=== PATIENT | male | born 1950 | race Caucasian/White ===

== ENCOUNTER 2025-03-31 08:01 | Observation (INO) | payer MEDICARE, SELFPAY ==
[2025-03-31] VITALS (7 sets, daily range): BP systolic 110–160; BP diastolic 58–98; PULSE 60–89; RESP 16–18; TEMP 36.4–36.9; O2SAT 95–100
--- NOTE | 2025-03-31 08:16 | MRI_ITS ---
PROCEDURE: SPINE LUMBAR (ROUTINE) 03/31/2025 REASON FOR EXAM: BACK PAIN, RIGHT SCIATICA TECHNIQUE: Procedure Code: MRISPL Modality: MR Procedure: SPINE LUMBAR (ROUTINE) COMPARISON: None FINDINGS: The vertebral body alignment is maintained. The vertebral body height is maintained. There is Modic edema type endplate change at the posterior inferior L4 endplate. Intervertebral disc signal i shows desiccation. Normal appearing facets are noted. The L1-L2 level: There is no significant disk protrusion. There is no lateral recess stenosis or foraminal stenosis. There is no critical central canal stenosis. The L2-L3 level: There is mild central, moderate right paracentral disc protrusion. There is mild right lateral recess effacement. There is mild right foraminal narrowing secondary to disc protrusion. There is no critical central canal stenosis. The L3-L4 level: There is moderate central and right and left paracentral disc protrusion, with an extruded component extending in the right lateral recess, posterior to L4, measuring 1.5 x 1.1 by 1.6 cm. There is moderate right and mild left lateral recess effacement. There is mild bilateral foraminal narrowing secondary to disc protrusion and facet hypertrophy. There is mild central canal stenosis at the L3-4 level, moderate central canal stenosis posterior to L4. The L4-L5 level: There is broad-based central and right and left paracentral disc protrusion with an extruded component which extends beyond the L4 endplate, there is moderate bilateral lateral recess stenosis. There is moderate right and mild left foraminal narrowing secondary to disc protrusion and facet hypertrophy. There is moderate central canal stenosis. The L5-S1 level: There is mild central and right and left paracentral disc and osteophyte protrusion. There is mild bilateral lateral recess effacement. There is mild right foraminal narrowing secondary to disc protrusion. There is no central canal stenosis. The visualized conus shows normal signal characteristics. Adjacent soft tissues are unremarkable. MRI/Spine Lumbar (Routine) IMPRESSION: There is Modic edema type endplate change at the posterior inferior L4 endplate , which can indicate recent injury or active inflammation. There is disc extrusion at L3-4 with a large fragment in the right lateral rece ss posterior to L4. There is disc extrusion at L4-5 which slightly protrudes beyond the L4 endplate . There is mild central canal stenosis at L3-4, moderate central canal stenosis p osterior to L4, and moderate central canal stenosis at L4-5, with lateral recess and foraminal narrowing. Reading Location: [facility]
--- NOTE | 2025-03-31 08:18 | ED.VIS.BACK ---
HPI History of Present Illness Chief Complaint: Back Detail of Chief Complaint: Back and right leg pain Informant: patient Narrative Narrative: Patient presents to the emergency department with concern for sciatica. Patient states that he has had pain in his right low back and buttock radiating down his right leg for about 9 to 10 days. Denies injury. No prior episodes like this. He was seen at urgent care last week and started on prednisone. Seen in the emergency department at [facility] yesterday and had x-rays of his right knee and a CAT scan he thinks of his back. He was medicated there and prescribed hydrocodone as well as more prednisone. They did not feel the hydrocodone prescription because they were there last night. He did have a fall yesterday and at times feels like his right leg wants to give out and he falls. Complains of some weakness in that right leg. Denies loss of bowel or bladder function. Denies saddle anesthesia. Denies fever or chills. [facility] Medical History Kidney disease Hypertension Hearing problem Migraines Chronic bronchitis Bone fracture Back problem Arthritis Allergies BMI 30.0-30.9,adult Hypercholesterolemia Diabetes type 2, uncontrolled Home Medications ?Medication ?Instructions ?Recorded ?Last Taken ?Type blood sugar diagnostic (Relion #20 ea 09/04/17 Unknown History Confirm-Micro strips) acetaminophen 650 mg 650 mg PO Q12H 06/01/24 Unknown History tablet,extended release (Tylenol Arthritis Pain) aspirin 81 mg tablet,delayed 81 mg PO QDAY 06/01/24 Unknown History release (Adult Low Dose Aspirin) blood sugar diagnostic (OneTouch #100 ea 06/01/24 Unknown Rx Verio test strips) blood-glucose meter (OneTouch #1 ea 06/01/24 Unknown Rx Verio Reflect Meter) cetirizine 10 mg capsule (Zyrtec) 10 mg PO QDAY PRN 06/01/24 Unknown History cholecalciferol (vitamin D3) 50 50 mcg PO QDAY 06/01/24 Unknown History mcg (2,000 unit) capsule multivitamin 1 tab PO QAM 06/01/24 Unknown History zinc sulfate 50 mg zinc (220 mg) 50 mg PO QDAY 06/01/24 Unknown History capsule lovastatin 10 mg tablet 10 mg PO .QOD 10/15/24 Unknown History metformin 500 mg tablet,extended 1,000 mg (2 x 500 mg) PO BID #360 11/17/24 Unknown Rx release 24 hr tabs enalapril maleate 5 mg tablet 5 mg PO BID #90 tabs 01/21/25 Unknown Rx glipizide 10 mg tablet 10 mg PO BID #180 tabs 02/17/25 Unknown Rx tadalafil 5 mg tablet (Cialis) 5 mg PO QDAY #90 tabs 02/22/25 Unknown Rx semaglutide 1 mg/dose (4 mg/3 mL) 1 mg (0.75 mL) subcut QWEEK #3 mL 03/22/25 Unknown Rx subcutaneous pen injector (Ozempic) methylprednisolone 4 mg tablets in See Rx Instructions PO PER PKG DIR 03/24/25 Unknown Rx a dose pack #21 tabs hydrochlorothiazide 25 mg tablet 25 mg PO QAM #90 tabs 03/30/25 Unknown Rx Allergy/AdvReac Type Severity Reaction Status Date / Time No Known Allergies Allergy Verified 03/31/25 08:03 Family History Brother Cancer lymphoma Sister Heart disease Father Heart disease Mother Heart disease Brother Cancer prostate Surgical History H/O colonoscopy Social History household members: spouse current occupational status: employed and retired 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, concrete, etc Smoking Status: Former smoker quit date: 06/03/89 pack-years: 3 second hand exposure: No alcohol intake: never substance use type: does not use do you feel safe at home: Yes ROS ROS ED Review of Systems ROS Unobtainable: other Constitutional Constitutional ED: Reports lethargy; Denies chills, fever(s), sweats or weight loss Eyes Eyes: Denies blurry vision, change in vision or diplopia ENT ENT ED: Denies rhinorrhea or sore throat Cardiovascular Cardiovascular: Denies chest pain, orthopnea or racing heartbeat Respiratory/Chest Respiratory/Chest: Denies cough, dyspnea, dyspnea on exertion, orthopnea or sputum Gastrointestinal Gastrointestinal: Denies abdominal pain, diarrhea, nausea or vomiting Genitourinary Genitourinary ED: Denies dysuria, hematuria or urinary frequency Musculoskeletal Musculoskeletal: Reports neck pain and other Details: Right leg pain ; Denies arthralgias, back pain or myalgias Integumentary Denies abscess, Abrasions or rash Neurologic Neurologic: Denies headache(s) or weakness Psychiatric Psychiatric: Denies anxiety, depression or suicidal thoughts Endocrine Endocrinology: Denies polydipsia, polyphagia or polyuria Hematologic/Lymphatic Hematologic/Lymphatic: Denies easy bleeding, easy bruising or lymphadenopathy Allergic/Immunologic Allergic/Immunologic ED: Denies mouth swelling, tongue swelling or urticaria EXAM Physical Exam Const Vital Signs: 03/31/25 08:02 03/31/25 10:13 Temperature 97.8 F Temperature Source Oral Pulse Rate 82 86 Respiratory Rate 16 Blood Pressure 127/70 H 110/67 Blood Pressure Mean 89 81 Pulse Ox 100 Oxygen Delivery Method Room Air Positive well nourished and well developed General Appearance ED: well developed and NAD HEENT Reports TM's clear and moist mucous membranes normocephalic and atraumatic; Negative for trauma or tenderness Tympanic Membrane ED: Yes TM's clear Eyes PERRL and EOMs intact bilaterally General Eye ED: Negative for pale conjunctiva or scleral icterus Neck no lymphadenopathy, supple and no JVD General: Negative for tenderness Chest Wall inspection of chest normal and palpation of chest normal Chest: Negative for tenderness Resp normal respiratory effort and clear to auscultation bilaterally Effort and Inspection: Negative for respiratory distress or pain with movement Auscultation: Negative for rhonchi, wheezes or diminished lung sounds Cardio regular rate, regular rhythm, S1 normal heart sound, S2 normal heart sound and no murmurs Peripheral Pulses: pulses 2+ throughout GI normal to inspection, nondistended, normoactive bowel sounds, soft to palpation, non-tender, non-distended and no masses Back/Spine no CVA tenderness and no thoracic nor lumbar tenderness Back/Spine Narrative: No tenderness over the thoracic or lumbar spine. Mild tenderness in the right buttock over the piriformis. He has negative straight leg raises. Tendon reflex at the right patella and Achilles unable to obtain. Deep tendon reflexes of the left lower extremity at the patella and Achilles plus 1 out of 4. Normal L5 extension bilaterally. Normal sensation to light touch Extremity normal to inspection General Extremety ED: Negative for edema General Extremity: Negative for edema Neuro oriented x3, CN's II-XII intact bilaterally, no sensory deficits noted and gait normal Sensorium / Orientation: awake, alert, oriented to person, oriented to place and oriented to time Motor Exam: strength 5/5 throughout and strength abnormal Psych mental status grossly normal Skin no rashes or lesions noted and no wounds MDM MDM MDM Narrative Medical decision making narrative: Patient presents with severe right leg pain consistent with sciatica. Medicated with Dilaudid. Basic labs obtained CBC with differential showed white count 12.9 with hemoglobin 14.7 and platelet count 264. Chemistries unremarkable. BUN 42 and creat 1.41. MRI of the lumbar spine obtained showed disc extrusion at L3-4 with large fragment in the right lateral recess posterior to L4. Patient had Modic edema type endplate change at posterior inferior L4 endplate which can indicate recent injury or active inflammation. I discussed case with orthopedic surgeon on-call Dr. Holley. We will admit patient for pain management and consultation by back specialist for possible intervention. Lab Data Attestation: I reviewed the patient's lab results. Labs: Laboratory Results - last 24 hr 03/31/25 08:29 WBC 12.9 H RBC 4.85 Hgb 14.7 Hct 42.3 MCV 87.2 MCH 30.3 MCHC 34.8 RDW Std Deviation 38.7 RDW Coeff of Julio 12.1 Plt Count 264 MPV 9.8 Immature Gran % (Auto) 0.500 Neut % (Auto) 79.2 H Lymph % (Auto) 9.7 L Gilmer % (Auto) 7.1 Eos % (Auto) 3.0 Baso % (Auto) 0.5 Absolute Neuts (auto) 10.2 H Absolute Lymphs (auto) 1.25 Nucleated RBC % 0 Sodium 135 Potassium 4.2 Chloride 96 L Carbon Dioxide 26.0 Anion Gap 13 BUN 42 H Creatinine 1.41 H Estim Creat Clear Calc 51.61 Est GFR (MDRD) Non-Af 52 L BUN/Creatinine Ratio 29.6 H Glucose 231 H Calcium 9.7 Radiography Diagnostic Testing: Clinical Impression(s) from Imaging Studies Lumbar Spine MRI 03/31/25 08:16 IMPRESSION: There is Modic edema type endplate change at the posterior inferior L4 endplate, which can indicate recent injury or active inflammation. There is disc extrusion at L3-4 with a large fragment in the right lateral recess posterior to L4. There is disc extrusion at L4-5 which slightly protrudes beyond the L4 endplate. There is mild central canal stenosis at L3-4, moderate central canal stenosis posterior to L4, and moderate central canal stenosis at L4-5, with lateral recess and foraminal narrowing. [facility] Discharge Plan Dx/Rx/DC Orders Clinical Impression: Sciatica, Intractable pain Disposition Disposition: Acute Care Hospital [facility]
[2025-03-31] MEDS: Orphenadrine 60 MG/2 ML Ampul IM (08:29)
[2025-03-31 08:37] LABS: Hematocrit 42.3 % (40-54); Hemoglobin 14.7 g/dL (13.0-16.5); Immature Granulocytes Count 0.060 X10^3/uL (0.0-0.0); Mean Corp Hgb Conc 34.8 g/dL (32-36); Mean Corpuscular Volume 87.2 fL (80-94); Mean Platelet Vol. 9.8 fl (6.2-12.0); NRBC Flagged by Analyzer 0 % (0-5); Platelet Count 264 K/mm3 (150-450); RBC Distribution Width CV 12.1 % (11.6-14.6); RBC Distribution Width SD 38.7 fl (35.1-43.9); Red Blood Count 4.85 M/mm3 (4.6-6.2); White Blood Count 12.9 K/mm3 (4.4-11.0)
[2025-03-31 09:04] LABS: Anion Gap 13 (5-15); BUN 42 mg/dL (4-19); BUN/Creat Ratio 29.6 RATIO (10-20); Calcium,Total 9.7 mg/dL (7.6-11.0); Carbon Dioxide 26.0 mmol/L (21.0-32.0); Chloride 96 mmol/L (98-108); Estimated Creatinine Clearance 51.61 ml/min (50-250); Glucose 231 mg/dL (70-99); Potassium 4.2 mmol/L (3.3-5.1)
[2025-03-31] MEDS: 0.9% Saline Lock 10 ML Syringe IV ×4 (12:23→23:40)
--- NOTE | 2025-03-31 18:21 | HP.PCM.HOS_ITS ---
HPI - General General Date of Admission: 03/31/25 Date of Service: 03/31/25 Chief Complaint: Right leg pain, intermittent weakness in the right leg, right lower back pain HPI Narrative ROZ LIU, is a 74 M who presents to the emergency room at [facility] with complaints of right leg pain radiating down to the knee and just below the knee, he also complains of right lower back pain and intermittent weakness in the right leg. The onset of the symptoms was 03/21/2025, he was seen at an urgent care and placed on a Medrol Dosepak for suspected sciatica. Workup in the emergency room included an MRI of the lumbar spine which revealed disc extrusion at L3-4 with a large fragment in the right lateral recess posterior to L4. There is also disc extrusion at L4-5 which slightly protrudes beyond the L4 endplate. There was also noted to be mild central canal stenosis at L3-4 moderate central canal stenosis posterior to L4 and moderate central canal stenosis at L4-5 with lateral recess and foraminal narrowing. CBC revealed a slightly elevated white blood cell count, creatinine was elevated at 1.41 and BUN was 42. Patient's glucose was 231. Patient was admitted to [place] [id number] for uncontrolled pain due to ruptured lumbar disks, he will be placed on IV Decadron, he will be seen by orthopedic surgery and he will be given gabapentin and narcotics for pain. Patient's blood sugars will be monitored due to administration of corticosteroids. [facility] Medical History Kidney disease Hypertension Hearing problem Migraines Chronic bronchitis Bone fracture Back problem Arthritis Allergies BMI 30.0-30.9,adult Hypercholesterolemia Diabetes type 2, uncontrolled Home Medications ?Medication ?Instructions ?Recorded ?Last Taken ?Type blood sugar diagnostic (Relion #20 ea 09/04/17 Unknown History Confirm-Micro strips) acetaminophen 650 mg 650 mg PO Q12H 06/01/24 Unkn own History tablet,extended release (Tylenol Arthritis Pain) aspirin 81 mg tablet,delayed 81 mg PO QDAY 06/01/24 Un known History release (Adult Low Dose Aspirin) blood sugar diagnostic (OneTouch #100 ea 06/01/24 Unkn own Rx Verio test strips) blood-glucose meter (OneTouch #1 ea 06/01/24 Unknown R x Verio Reflect Meter) cetirizine 10 mg capsule (Zyrtec) 10 mg PO QDAY PRN al lergy symptoms 06/01/24 Unknown History cholecalciferol (vitamin D3) 50 50 mcg PO QDAY 4 Unknown History mcg (2,000 unit) capsule multivitamin 1 tab PO QAM 06/01/24 Unknow n History zinc sulfate 50 mg zinc (220 mg) 50 mg PO QDAY 4 Unknown History capsule lovastatin 10 mg tablet 10 mg PO .QOD 10/15/24 Unkno wn History metformin 500 mg tablet,extended 1,000 mg (2 x 500 mg) PO BID #360 11/17/24 Unknown Rx release 24 hr tabs enalapril maleate 5 mg tablet 5 mg PO BID #90 tabs Unknown Rx glipizide 10 mg tablet 10 mg PO BID #180 tabs 02/17 Unknown Rx tadalafil 5 mg tablet (Cialis) 5 mg PO QDAY #90 tabs 0 02/22/25 Unknown Rx semaglutide 1 mg/dose (4 mg/3 mL) 1 mg (0.75 mL) subcu t QWEEK #3 mL 03/22/25 Unknown Rx subcutaneous pen injector (Ozempic) hydrochlorothiazide 25 mg tablet 25 mg PO QAM #90 tabs 03/30/25 Unknown Rx Allergy/AdvReac Type Severity Reaction Status Date / Time No Known Allergies Allergy Verified 03/31/25 08:03 Family History Brother Cancer lymphoma Sister Heart disease Father Heart disease Mother Heart disease Brother Cancer prostate Surgical History H/O colonoscopy Social History household members: spouse current occupational status: employed and retired 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, concrete, etc Smoking Status: Former smoker quit date: 06/03/89 pack-years: 3 second hand exposure: No alcohol intake: never substance use type: does not use do you feel safe at home: Yes ROS Constitutional Constitutional: Denies anorexia, change in weight, chills, fatigue, fever(s), night sweats or weakness Eyes Eyes: Denies blurry vision, change in vision, discharge from eye(s) or eye pain Cardiovascular Cardiovascular: Denies chest pain, claudication, dyspnea on exertion, edema or palpitations Respiratory/Chest Respiratory/Chest: Denies cough, hemoptysis, shortness of breath at rest or shortness of breath with exertion Gastrointestinal Gastrointestinal: Denies abdominal pain, constipation, diarrhea, hematemesis, hematochezia, melena, nausea or vomiting Genitourinary Genitourinary: Denies dysuria, hematuria, urinary frequency, urinary hesitancy, urinary incontinence or urinary urgency Musculoskeletal Musculoskeletal: Reports back pain and other Details: Right leg pain radiating from the right lower back area ; Denies joint pain, joint stiffness, joint swelling, myalgias or neck pain Neurologic Neurologic: Denies abnormal gait, abnormal speech, confusion, dizziness, focal weakness, headache(s), loss of vision, numbness, other visual disturbances, paresthesias, syncope or tingling Psychiatric Psychiatric: Denies anxiety, cognitive impairment, depression, irritability, mood swings or suicidal ideation Endocrine Endocrinology: Denies change in body appearance, cold intolerance, excessive sweating, heat intolerance, polydipsia or polyuria Hematologic/Lymphatic Hematologic/Lymphatic: Denies none, anemia, easy bleeding, easy bruising or lymphadenopathy Allergic/Immunologic Allergic/Immunologic: Denies rhinitis, urticaria, eczemia or asthma Vital Signs Vital Signs Vital Signs: 03/31/25 08:02 03/31/25 10:13 03/31/25 11:17 Temperature 97.8 F 97.8 F Temperature Source Oral Pulse Rate 82 86 84 Respiratory Rate 16 16 Respiratory Effort Respiratory Depth Respiratory Pattern Blood Pressure 127/70 H 110/67 160/98 H Blood Pressure Mean 89 81 118 Blood Pressure Source Blood Pressure Position Blood Pressure Location Pulse Ox 100 99 Oxygen Delivery Method Room Air 03/31/25 11:19 03/31/25 12:01 03/31/25 16:57 Temperature 97.6 F L Temperature Source Oral Pulse Rate 76 Respiratory Rate 18 Respiratory Effort Normal Non-Labored Respiratory Depth Normal Respiratory Pattern Normal Blood Pressure 112/70 115/73 Blood Pressure Mean 84 87 Blood Pressure Source Monitor Blood Pressure Position Semi-Fowlers Blood Pressure Location Right Arm Pulse Ox 100 Oxygen Delivery Method Room Air Room Air 03/31/25 17:09 Temperature 97.7 F L Temperature Source Oral Pulse Rate 60 Respiratory Rate 18 Respiratory Effort Respiratory Depth Respiratory Pattern Blood Pressure 120/58 L Blood Pressure Mean 78 Blood Pressure Source Monitor Blood Pressure Position Semi-Fowlers Blood Pressure Location Right Arm Pulse Ox 98 Oxygen Delivery Method Room Air Weight Weight: 92.4 kg Body Mass Index (BMI) 30.0 Physical Exam Const alert, oriented x3, no apparent distress, average body habitus and healthy appearing General Appearance: cooperative, well kempt and well developed Orientation / Consciousness: awake, oriented to person, oriented to place and oriented to time HEENT normocephalic, head/scalp atraumatic, hearing grossly normal bilaterally and moist oral mucous membranes Eyes PERRL, EOMs intact bilaterally and conjunctivae normal Neck supple, no JVD, thyroid normal and no carotid bruits General: trachea midline Resp normal respiratory effort, no retractions, no use of accessory muscles and clear to auscultation bilaterally Auscultation: Negative for rales, rhonchi or wheezes Cardio regular rate, regular rhythm, S1 normal heart sound, S2 normal heart sound, no murmurs, no rub and no gallops GI normal to inspection, nondistended, normoactive bowel sounds, soft to palpation, non-tender and non-distended Extremity no clubbing, cyanosis or edema Skin no rashes or lesions noted General Skin Exam: no breakdown Neuro oriented x3, CN's II-XII intact bilaterally, moves all extremities, no focal motor deficits and no sensory deficits noted Sensorium / Orientation: awake and alert Speech: speech normal Psych affect normal Results Lab / Micro Data 03/31/25 08:29 03/31/25 08:29 Labs: Laboratory Results - last 24 hr 03/31/25 08:29: WBC 12.9 H, RBC 4.85, Hgb 14.7, Hct 42.3, MCV 87.2, MCH 30.3, MCHC 34.8, RDW Std Deviation 38.7, RDW Coeff of Julio 12.1, Plt Count 264, MPV 9.8, Immature Gran % (Auto) 0.500, Neut % (Auto) 79.2 H, Lymph % (Auto) 9.7 L, [place] % (Auto) 7.1, Eos % (Auto) 3.0, Baso % (Auto) 0.5, Absolute Neuts (auto) 10.2 H, Absolute Lymphs (auto) 1.25, Nucleated RBC % 0, Sodium 135, Potassium 4.2, Chloride 96 L, Carbon Dioxide 26.0, Anion Gap 13, BUN 42 H, Creatinine 1.41 H, Estim Creat Clear Calc 51.61, Est GFR (MDRD) Non-Af 52 L, BUN/Creatinine Ratio 29.6 H, Glucose 231 H, Calcium 9.7 03/31/25 12:16: POC Glucose 155 H 03/31/25 16:15: POC Glucose 218 H Imaging Radiology Impression Lumbar Spine MRI 03/31/25 08:16 IMPRESSION: There is Modic edema type endplate change at the posterior inferior L4 endplate, which can indicate recent injury or active inflammation. There is disc extrusion at L3-4 with a large fragment in the right lateral recess posterior to L4. There is disc extrusion at L4-5 which slightly protrudes beyond the L4 endplate. There is mild central canal stenosis at L3-4, moderate central canal stenosis posterior to L4, and moderate central canal stenosis at L4-5, with lateral recess and foraminal narrowing. Reading Location: [facility] Assessment & Plan Assessment/Plan (1) Intractable pain: PLAN: Plan 1. Intractable pain secondary to ruptured lumbar disks with sciatica-again patient will be admitted to [facility] 3, IV Decadron will be administered as well as oral gabapentin and IV narcotics/p.o. narcotics for pain. Patient will be seen in consultation by orthopedic surgery, I have also decided to have pain management see the patient and it is likely he will undergo an epidural injection tomorrow. #2 type 2 diabetes-blood sugars will be monitored, sliding scale insulin will be administered as needed #3 essential hypertension-patient will remain on his home medication #4 hyperlipidemia-patient will remain on a statin #5 elevated creatinine-possibly secondary to hydrochlorothiazide usage for blood pressure-BMP will be rechecked tomorrow Total clinical time spent by myself addressing the patient's medical issues, reviewing all of his data, and collaborating with patient's care team: 55 minutes Charges/Coding Visit Charges Inpatient E&M: 48797 Init Hosp L2
[2025-04-01] VITALS (10 sets, daily range): BP systolic 97–117; BP diastolic 62–67; PULSE 79–93; RESP 16–18; TEMP 36.4–36.9; O2SAT 95–97
[2025-04-01 04:39] LABS: Hematocrit 35.5 % (40-54); Hemoglobin 13.0 g/dL (13.0-16.5); Immature Granulocytes Count 0.040 X10^3/uL (0.0-0.0); Mean Corp Hgb Conc 36.6 g/dL (32-36); Mean Corpuscular Volume 84.3 fL (80-94); Mean Platelet Vol. 9.8 fl (6.2-12.0); NRBC Flagged by Analyzer 0 % (0-5); Platelet Count 245 K/mm3 (150-450); RBC Distribution Width CV 11.9 % (11.6-14.6); RBC Distribution Width SD 36.4 fl (35.1-43.9); Red Blood Count 4.21 M/mm3 (4.6-6.2); White Blood Count 9.4 K/mm3 (4.4-11.0)
[2025-04-01 05:24] LABS: Anion Gap 13 (5-15); BUN 43 mg/dL (4-19); BUN/Creat Ratio 33.9 RATIO (10-20); Calcium,Total 8.8 mg/dL (7.6-11.0); Carbon Dioxide 21.5 mmol/L (21.0-32.0); Chloride 96 mmol/L (98-108); Estimated Creatinine Clearance 57.30 ml/min (50-250); Glucose 275 mg/dL (70-99); Potassium 4.7 mmol/L (3.3-5.1)
--- NOTE | 2025-04-01 06:00 | EKG12_ITS ---
Test Reason : AM EKG Blood Pressure : */* mmHG Vent. Rate : 90 BPM Atrial Rate : 90 BPM P-R Int : 184 ms QRS Dur : 108 ms QT Int : 382 ms P-R-T Axes : 56 -41 63 degrees QTcB Int : 467 ms Normal sinus rhythm Left axis deviation ST & T wave abnormality, consider lateral ischemia Prolonged QT Abnormal ECG No previous ECGs available Confirmed by KAEL STRICKLAND, ROHAN ([id number]), non linear editor AMADEO DYER ([id number]) on 04/02/2025 10:55:38 AM Referred By: BELEN Confirmed By: ROHAN SCRUGGS MD
[2025-04-01] MEDS: 0.9% Saline Lock 10 ML Syringe IV ×2 (06:14→11:31)
--- NOTE | 2025-04-01 10:30 | CASEMGMT ---
RN?CM?ASSESSMENT ? RN?CM?to room to meet with patient for initial transition planning/care coordination?assessment.?RN?CM?introduced self and role at [facility].? Pt voices understanding and consents to?assessment?at this time.? Pt resting in bed in no distress at this time.? @ bedside. Pt is A/O at this time and answers all questions appropriately.?? Care providers, pharmacy, and demographics verified/updated at this time. ? Strata: 2 PCP: Dr Reveles Specialists:Dr Dunn & JASMYNE Mo-endocrinology, Dr Hernandez-podiatry Preferred Pharmacy: [facility] retail @ [address]. Pt would like [id number]. Insurance: [employer] Prescription Benefit:?Yes LNOK: Nelly Living Arrangements: Lives w/ in 2-story home w/2 steps to enter. Bedroom and full bathroom on 2nd floor, 1/2 bath on 1st floor. Indep w/ADL's. able to assist, if needed. Transportation:?Pt and both drive. DME: ?States has the following DME:?functioning glucometer w/sufficient amt of supplies. interested in getting a shower chair. Made aware this is not covered by pt's insurance and verbal list of local places this can be purchased from [employer], in addition to [employer]. Pt's brother has a walker he can borrow, if needed. Pt and voice no need for further DME at this time.? HHC/SNF: No hx of either. Pt denies needs and no needs identified. Pt has done OP therapy in the past. He is not interested in doing this again. ? Pt wishes to return home and states has no concerns with going home at time of discharge. CM?to follow for any further discharge planning/needs.? Advised pt and to ask for?CM?if any further questions/concerns/needs arise.? They voice understanding. ? PLAN:??Home w/ PT/OT evals pending. ? Raquel BSN?RN?CM ? ?
--- NOTE | 2025-04-01 13:30 | RAD_ITS ---
PROCEDURE: SPINE 1 VIEW ANY LEVEL 04/01/2025 REASON FOR EXAM: LUMBAR EPIDURAL TECHNIQUE: Procedure Code: RADSPCV Modality: DX Procedure: SPINE 1 VIEW ANY LEVEL Fluoroscopy time: 4.5 seconds Total images: 1 COMPARISON: None FINDINGS: Solitary fluoroscopic spot image was obtained in the anterior projection. It is assumed that the patient is prone. It is assumed that there are 5 lumbar type vertebral bodies. Spot image of the lumbar spine shows a needle overlying the L4/5 disc space just right of midline. There is injection of contrast material spanning portions of L4, L5, and the upper aspect of S1. RAD/Spine 1 View Any Level IMPRESSION: Fluoroscopic localization and guidance. Correlate with procedural note. Reading Location: [facility]
[2025-04-01] MEDS: Lactated Ringers 1,000 ML 15 ML IV (13:44)
--- NOTE | 2025-04-01 14:37 | PRE.ANES_ITS ---
ASA Classification* ASA Classification ASA Classification: 2 Assessment & Plan Anesthesia* Anesthesia Assessment Anesthesia Assessment: Discussed sedation and/or anesthesia options, risks, benefits, and alternatives with patient/parents/legal guardian/POA. Questions invited. The patient/parents/legal guardian/POA seems to understand and agrees to proceed with anesthesia plan. Reviewed the physical assessment, medical history, allergy history and patient home medications list prior to surgery/procedure/anesthetic and documented any changes. Performed airway and anesthesia risk assessments. Anesthesia Type Anesthesia Type: MAC History Source History Obtained from:: Patient and Chart Anesthesia Focused Assessment* Temperature: 97.8 F Pulse Rate: 80 Blood Pressure: 105/65 Respiratory Rate: 17 Pulse Ox: 97 Oxygen Delivery Method: Room Air Airway Assessment Mouth opens: >3 cm Mallampati Score: IV Teeth Condition: Caps/Crowns (Patient has a left upper molar that is capped. It is tight.) and Missing (Patient is missing a right upper molar. Rest of the teeth are tight.) Neck Range of motion (ROM): Limited ROM (Somewhat Decreased.) Labs Anesthesia Preop lab: CBC WBC, (4.4-11.0) 9.4 K/mm3 Today, 04:27 RBC, (4.6-6.2) 4.21 M/mm3 L Today, 04:27 Hgb, (13.0-16.5) 13.0 g/dL Today, 04:27 Hct, (40-54) 35.5 % L Today, 04:27 Plt Count, (150-450) 245 K/mm3 Today, 04:27 CHEMISTRY Potassium, (3.3-5.1) 4.7 mmol/L Today, 04:27 Sodium, (133-145) 130 mmol/L L Today, 04:27 BUN, (4-19) 43 mg/dL H Today, 04:27 Creatinine, (0.70-1.20) 1.27 mg/dL H Today, 04:27 Glucose, (70-99) 275 mg/dL H Today, 04:27 POC Glucose, (74-106) 199 mg/dL H Today, 10:59 COAG Pre-Assessment Diagnosis/Proposed Procedure Planned Operative Procedure(s): Lumbar epidural steroid injection. Anesthesia History Anesthesia History - multi disciplined language analyst: Anesthesia History - multi disciplined language analyst Hx Hospitalization Any Problems With Anesthesia No 04/01/25 04:54 Cholinesterase deficiency No 04/01/25 04:54 You/Your Family Experience No 04/01/25 04:54 fever (hyperthermia) with Relationship Recent Exposure to Contagious No 04/01/25 04:54 Disease Does patient have nerve No 04/01/25 04:54 stimulator Patient instructed to have No 04/01/25 04:54 device shut off --Does patient have Pacemaker No 04/01/25 07:29 or ICD? When Was Last Pacemaker Check QUESTION #4 FULL TEXT: You/Your Family Experience fever (hyperthermia) with Anesthesia Last Oral Intake Last Oral intake: Last Oral Intake NPO since 00:00 04/01/25 07:29 Meds taken in AM with sips of No 04/01/25 07:29 water? Meds patient instructed to take am of surgery PONV PONV - multi disciplined language analyst: PONV - multi disciplined language analyst Female HX of Motion Sickness HX of N/V After Surgery Non-Smoker Duration of Surgery greater than 60 minutes Number of Risk Factors PONV Score Height & Weight Height & Weight: Anesthesia: Height & Weight Height 5 ft 9 in 04/01/25 07:29 Weight: 92.4 kg 04/01/25 07:29 Body Mass Index (BMI) 30.0 04/01/25 07:29 Respiratory Assessment Respiratory Assessment - multi disciplined language analyst: Respiratory Tract Infection Hx - multi disciplined language analyst Hx Respiratory Tract Infection No 04/01/25 04:54 STOP Sleep Apnea STOP Sleep Apnea - multi disciplined language analyst: STOP Sleep Apnea - multi disciplined language analyst Hx Hypertension Yes 03/31/25 11:41 Hx Sleep Apnea No 03/31/25 11:41 CPAP BIPAP Do you snore loudly (louder No 03/31/25 11:41 than talking or can be heard Do you often feel tired/ No 03/31/25 11:41 fatigued/ sleepy during daytime? Has anyone observed you stop No 03/31/25 11:41 breathing during sleep? STOP Results Negative 03/31/25 11:41 QUESTION #5 FULL TEXT : Do you snore loudly (louder than talking or can be heard through closed doors)? Tobacco Use History Tobacco Use History - multi disciplined language analyst: Tobacco Use History - multi disciplined language analyst Tobacco Use Smoking Status Former smoker 03/31/25 11:41 Hx Tobacco Use No 03/31/25 11:41 Years Smoking Packs Smoked per Day Smoking Cessation Date was No - quit smoking greater 03/31/25 11:41 within the last 15 years than 15 years ago Hx Smoking Cessation Date Hx Smoking Cessation Counseling Hematologic Medial History Hematologic Hx - multi disciplined language analyst: Hematologic Medical Hx - rotary soil stabilizer Hx of Blood Transfusion No 03/31/25 11:41 Hx of Transfusion in last 3 No 03/31/25 11:41 Months Date of Last Transfusion (if within last 3 months) Ever experience any problems No 03/31/25 11:41 with transfusion(s)? Specify any problems Hx of Preganancy in last 3 N/A 03/31/25 11:41 Months Nurse Filling Out Transfusion NMARTY 03/31/25 11:41 & Questions: Date: 03/31/25 03/31/25 11:41 Time: 11:56 03/31/25 11:41 Patient unable to answer at this time (ie. confused, unrespo /Reproduction History /Reproductive History - multi disciplined language analyst: /Reproductive Hx- multi disciplined language analyst Hx Now No 04/01/25 04:54 Gestational Age (in weeks): EDC: Hx Hx Para Hx Section SAB No 04/01/25 04:54 Active Medications Active Medications: Current Medications Generic Name Dose Route Start Last Admin Trade Name Freq PRN Reason Stop Dose Admin Acetaminophen 1,000 mg 03/31/25 14:00 04/01/25 13:15 Acetaminophen 500 Mg Tablet PO Not Given Q8 KESHIA Atorvastatin Calcium 5 mg 03/31/25 22:00 03/31/25 21:39 Atorvastatin Calcium 10 Mg Tablet PO 5 mg Q48@2200 KESHIA Administration Dexamethasone Sodium Phosphate 4 mg 03/31/25 12:00 04/01/25 11:30 Dexamethasone 4 Mg/Ml Vial IV 4 mg Q6 KESHIA Administration Gabapentin 400 mg 03/31/25 12:00 04/01/25 11:05 Gabapentin 400 Mg Capsule PO Not Given TIDCM KESHIA Glucagon 1 mg 03/31/25 11:39 Glucagon 1 Mg/Ml Syringe IM X1 PRN HYPOGLYCEMIA Protocol Hydrochlorothiazide 25 mg 04/01/25 10:00 04/01/25 07:28 Hydrochlorothiazide 25 Mg Tablet PO Not Given QAM KESHIA Protocol Hydromorphone HCl 1 mg 03/31/25 11:39 Hydromorphone 1 Mg/Ml Syringe IV Q4H PRN PRN Pain Score 1-10 Dextrose 250 mls @ 0 mls/hr 03/31/25 11:39 Dextrose 10%-Water IV .Q0M PRN HYPOGLYCEMIA Protocol As Directed Sodium Chloride 250 mls @ 15 mls/hr 03/31/25 12:01 IV .[id number] PRN Saline Flush Sodium Chloride 250 mls @ 15 mls/hr 03/31/25 12:01 IV .[id number] PRN Additional IVPB Infusion Lactated Ringer's 1,000 mls @ 15 mls/hr 04/01/25 13:45 04/01/25 13:44 IV 15 mls/hr .Q48H KESHIA Administration Insulin Human Lispro 0 unit 03/31/25 11:39 04/01/25 11:05 Insulin Lispro 100 Unit/Ml Insuln.Pen SC Not Given TIDAC [facility] Protocol Lisinopril 5 mg 03/31/25 22:00 04/01/25 07:28 Lisinopril 5 Mg Tablet PO Not Given BID [facility] Protocol Ondansetron HCl 4 mg 03/31/25 11:39 Ondansetron 4 Mg/2 Ml Vial IV Q8H PRN PRN NAUSEA/VOMITING Oxycodone HCl 10 mg 03/31/25 11:39 03/31/25 21:38 Oxycodone 5 Mg Tablet PO 10 mg Q4H PRN PRN Administration Pain Score 1-10 Sodium Chloride 10 - 40 ml 03/31/25 12:01 04/01/25 11:31 0.9% Saline Lock 10 Ml Syringe IV 10 ml UD PRN Administration SALINE FLUSH Zolpidem Tartrate 5 mg 03/31/25 11:39 Zolpidem Tartrate 5 Mg Tablet PO QHS PRN PRN INSOMNIA PFSH Medical History Kidney disease Hypertension Hearing problem Migraines Chronic bronchitis Bone fracture Back problem Arthritis Allergies BMI 30.0-30.9,adult Hypercholesterolemia Diabetes type 2, uncontrolled Home Medications ?Medication ?Instructions ?Recorded ?Last Taken ?Type blood sugar diagnostic (Relion #20 ea 09/04/17 Unknown History Confirm-Micro strips) acetaminophen 650 mg 650 mg PO Q12H 06/01/24 Unkn own History tablet,extended release (Tylenol Arthritis Pain) aspirin 81 mg tablet,delayed 81 mg PO QDAY 06/01/24 Un known History release (Adult Low Dose Aspirin) blood sugar diagnostic (OneTouch #100 ea 06/01/24 Unkn own Rx Verio test strips) blood-glucose meter (OneTouch #1 ea 06/01/24 Unknown R x Verio Reflect Meter) cetirizine 10 mg capsule (Zyrtec) 10 mg PO QDAY PRN al lergy symptoms 06/01/24 Unknown History cholecalciferol (vitamin D3) 50 50 mcg PO QDAY 4 Unknown History mcg (2,000 unit) capsule multivitamin 1 tab PO QAM 06/01/24 Unknow n History zinc sulfate 50 mg zinc (220 mg) 50 mg PO QDAY 4 Unknown History capsule lovastatin 10 mg tablet 10 mg PO .QOD 10/15/24 Unkno wn History metformin 500 mg tablet,extended 1,000 mg (2 x 500 mg) PO BID #360 11/17/24 Unknown Rx release 24 hr tabs enalapril maleate 5 mg tablet 5 mg PO BID #90 tabs Unknown Rx glipizide 10 mg tablet 10 mg PO BID #180 tabs 02/17 Unknown Rx tadalafil 5 mg tablet (Cialis) 5 mg PO QDAY #90 tabs 0 02/22/25 Unknown Rx hydrochlorothiazide 25 mg tablet 25 mg PO QAM #90 tabs 03/30/25 Unknown Rx semaglutide 1 mg/dose (4 mg/3 mL) 1 mg (0.75 mL) subcu t QWEEK #9 mL 04/01/25 Unknown Rx subcutaneous pen injector (Ozempic) Allergy/AdvReac Type Severity Reaction Status Date / Time No Known Allergies Allergy Verified 03/31/25 08:03 Family History Brother Cancer lymphoma Sister Heart disease Father Heart disease Mother Heart disease Brother Cancer prostate Surgical History H/O colonoscopy Social History household members: spouse current occupational status: employed and retired 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
[2025-04-01] MEDS: Lidocaine 1% (5 ml sdv) 5 ML Vial 4 ML IV (15:02)
[2025-04-01] MEDS: Lidocaine 0.5% (50 ml) 50 ML Vial (15:08)
--- NOTE | 2025-04-01 15:27 | PCM.POST.ANE ---
Anesthesia: Postop Eval I Current Vital Signs Temperature: 97.5 F Pulse Rate: 80 Blood Pressure: 97/64 Respiratory Rate: 16 Pulse Ox: 96 Oxygen Delivery Method: Room Air Assessment Airway patent: Yes Spontaneous unlabored respirations: Yes Mental status: Awake and Calm nausea: No Vomiting: No Anesthesia Complication: No Fluid Hydration Crystalloid volume administer (ml): 200 Total IV fluid infused: 200 Progress Note Anesthesia document: Postop Eval 1 completed: Yes
--- NOTE | 2025-04-01 16:10 | POSTOPAN2_ITS ---
Anesthesia Postop Eval I Sum Postop Eval Completion status Anesthesia document: Postop Eval 1 completed: Yes Anesthesia Postop Eval I Summary Anesthesia Postop Eval I Summary: Anesthesia Postop Eval I: Assessment Summary Airway patent Yes 04/01/25 15:27 MUSIC EDUCATION DIRECTOR.SKOBY Spontaneous unlabored Yes 04/01/25 15:27 MUSIC EDUCATION DIRECTOR.SKOBY respirations Mental status Awake,Calm 04/01/25 15:27 MUSIC EDUCATION DIRECTOR.SKOBY nausea No 04/01/25 15:27 MUSIC EDUCATION DIRECTOR.SKOBY Vomiting No 04/01/25 15:27 MUSIC EDUCATION DIRECTOR.SKOBY Anesthesia Postop Eval I: Fluid Summary Crystalloid volume administer 200 04/01/25 15:27 MUSIC EDUCATION DIRECTOR.SKOBY (ml) Colloids volume administered ( ml) Blood Product volume administered (ml) Total IV fluid infused 200 04/01/25 15:27 MUSIC EDUCATION DIRECTOR.SKOBY Anesthesia Postop Eval I: Summary Notes Anesthesia Complication No 04/01/25 15:27 MUSIC EDUCATION DIRECTOR.SKOBPeri Anesthesia Complication Comment: Post-operative progress note Anesthesia: Postop Eval II Evaluation Mental status: Awake and Calm Pain Level: 0 nausea: No Vomiting: No Complications Anesthesia Complication: No
--- NOTE | 2025-04-01 16:10 | PCM.POSTANE2 ---
Anesthesia Postop Eval I Sum Postop Eval Completion status Anesthesia document: Postop Eval 1 completed: Yes Anesthesia Postop Eval I Summary Anesthesia Postop Eval I Summary: Anesthesia Postop Eval I: Assessment Summary Airway patent Yes 04/01/25 15:27 FACING SLITTER.SKOBY Spontaneous unlabored Yes 04/01/25 15:27 FACING SLITTER.SKOBY respirations Mental status Awake,Calm 04/01/25 15:27 FACING SLITTER.SKOBY nausea No 04/01/25 15:27 FACING SLITTER.SKOBY Vomiting No 04/01/25 15:27 FACING SLITTER.SKOBY Anesthesia Postop Eval I: Fluid Summary Crystalloid volume administer 200 04/01/25 15:27 FACING SLITTER.SKOBY (ml) Colloids volume administered ( ml) Blood Product volume administered (ml) Total IV fluid infused 200 04/01/25 15:27 FACING SLITTER.SKOBY Anesthesia Postop Eval I: Summary Notes Anesthesia Complication No 04/01/25 15:27 FACING SLITTER.SKOBPeri Anesthesia Complication Comment: Post-operative progress note Anesthesia: Postop Eval II Evaluation Mental status: Awake and Calm Pain Level: 0 nausea: No Vomiting: No Complications Anesthesia Complication: No
--- NOTE | 2025-04-01 16:49 | DCINST_ITS ---
Discharge Instructions DC O2, CPAP, BIPAP needs Home O2 Discharge instructions: No Dressing / Incision Discharge Activity: Return to Normal Activity and - (No lifting above 10 pounds) Weight Bearing Status: Full weight bearing Follow Up Care Test Results: Test results from this visit will be discussed in further detail at your follow- up appointment, if applicable. Discharge Plan Admission Admit Date/Time: 03/31/25 10:57 Primary Reason for Your Visit: Ruptured lumbar disc, uncontrolled pain from sc iatica Attending Provider: Handy Ho Primary Care Provider: Nimisha Reveles Consulting Providers: Ellen Hinds Discharge Orders/Prescriptions Prescriptions: New gabapentin 400 mg Capsule 400 mg PO TIDCM Qty: 90 0RF oxycodone 5 mg Tablet 5 - 10 mg PO Q4H PRN PRN (Reason: Pain Score 1-10) 7 Days Qty: 42 0RF prednisone 20 mg tablet 20 mg PO DAILY Qty: 10 0RF Continued (DME) blood sugar diagnostic [Relion Confirm-Micro] strip See Dose Instructions .ROUTE .MEDSUPPLY Qty: 20 Rx Instructions: As directed lovastatin 10 mg tablet 10 mg PO .QOD zinc sulfate 50 mg zinc (220 mg) capsule 50 mg PO QDAY aspirin [Adult Low Dose Aspirin] 81 mg tablet,delayed release (DR/EC) 81 mg PO QDAY acetaminophen [Tylenol Arthritis Pain] 650 mg tablet extended release 650 mg PO Q12H cholecalciferol (vitamin D3) 50 mcg (2,000 unit) capsule 50 mcg PO QDAY multivitamin Tablet 1 tab PO QAM Zyrtec 10 mg capsule 10 mg PO QDAY PRN (Reason: allergy symptoms) (DME) OneTouch Verio test strips Strip See Rx Instructions .Route Qty: 100 5RF Rx Instructions: TID enalapril maleate 5 mg tablet 5 mg PO BID Qty: 90 1RF (DME) blood-glucose meter [OneTouch Verio Ref[place] Meter[place] [facility] [place] .Route Qty: 1 0RF Rx Instructions: to be used 4x/day with test strip metformin 500 mg tablet extended release 24 hr 1,000 mg PO BID Qty: 360 1RF glipizide 10 mg tablet 10 mg PO BID Qty: 180 1RF tadalafil [Cialis] 5 mg tablet 5 mg PO QDAY Qty: 90 0RF hydrochlorothiazide 25 mg tablet 25 mg PO QAM Qty: 90 0RF Ozempic 1 mg/dose (4 mg/3 mL) pen injector 1 mg subcut QWEEK Qty: 9 1RF Referrals / Follow Up: Ellen Hinds MD [Med Staff - Active Staff, Pain Management] - See Referral Note Referral Note: In 3 months Nimisha Reveles MD [Primary Care Provider, Internal Medicine] - Within 1 Month Junior Sullivan MD [Med Staff - Active Staff, Orthopedics] - See Referral Note Referral Note: Call the office to schedule appointment in 2 weeks, tell them you were hospitalized for ruptured disc and Dr. Sullivan requested you come in 2 weeks to the office Disposition Disposition (needs filled in before D/C Order can be placed): Home, Self Care
--- NOTE | 2025-04-01 16:58 | DS.PCM_ITS ---
Providers Date of Admission: 03/31/25 Date of Discharge: 04/01/25 Primary Care Physician: Dr. Nimisha Reveles MD Consultations 03/31/25 16:18 Consult: Pain Management Routine Consulting Provider: Ellen Hinds Reason for Consult: lumbar disc rupture, radicular pain EMERGENT Consult: No MD Notified: Yes Date Notified: 03/31/25 Time Notified: 16:19 Method of Notification: Verbal Reason For Visit: LUMBAR DISC RUPTURE, UNCONTROLLED PAIN, LEG WEAKNE Diagnosis Discharge Diagnosis (1) Intractable pain: Status: Acute Code(s): R52 - Pain, unspecified Plan 1. Intractable pain secondary to ruptured lumbar disks with sciatica-again patient will be admitted to [facility] 3, IV Decadron will be administered as well as oral gabapentin and IV narcotics/p.o. narcotics for pain. Patient will be seen in consultation by orthopedic surgery, I have also decided to have pain management see the patient and it is likely he will undergo an epidural injection tomorrow. #2 type 2 diabetes-blood sugars will be monitored, sliding scale insulin will be administered as needed #3 essential hypertension-patient will remain on his home medication #4 hyperlipidemia-patient will remain on a statin #5 elevated creatinine-possibly secondary to hydrochlorothiazide usage for blood pressure-BMP will be rechecked tomorrow Total clinical time spent by myself addressing the patient's medical issues, reviewing all of his data, and collaborating with patient's care team: 55 minutes Medications at Discharge Home Medications blood sugar diagnostic (Relion Confirm-Micro strips) #20 ea 09/04/17 acetaminophen 650 mg tablet,extended release (Tylenol Arthritis Pain) 650 mg PO Q12H 06/01/24 aspirin 81 mg tablet,delayed release (Adult Low Dose Aspirin) 81 mg PO QDAY 06/01/24 blood sugar diagnostic (OneTouch Verio test strips) #100 ea 06/01/24 blood-glucose meter (OneTouch Verio Reflect Meter) #1 ea 06/01/24 cetirizine 10 mg capsule (Zyrtec) 10 mg PO QDAY PRN allergy symptoms 06/01/24 cholecalciferol (vitamin D3) 50 mcg (2,000 unit) capsule 50 mcg PO QDAY 06/01/24 multivitamin 1 tab PO QAM 12/30/24 zinc sulfate 50 mg zinc (220 mg) capsule 50 mg PO QDAY 06/01/24 lovastatin 10 mg tablet 10 mg PO .QOD 10/15/24 metformin 500 mg tablet,extended release 24 hr 1,000 mg (2 x 500 mg) PO BID #360 tabs 11/17/24 enalapril maleate 5 mg tablet 5 mg PO BID #90 tabs 01/21/25 glipizide 10 mg tablet 10 mg PO BID #180 tabs 02/17/25 tadalafil 5 mg tablet (Cialis) 5 mg PO QDAY #90 tabs 02/22/25 hydrochlorothiazide 25 mg tablet 25 mg PO QAM #90 tabs 03/30/25 gabapentin 400 mg capsule 400 mg PO TIDCM #90 caps 04/01/25 oxycodone 5 mg tablet 5 - 10 mg (1 - 2 x 5 mg) PO Q4H PRN PRN Pain Score 1-10 7 days #42 tabs 04/01/25 prednisone 20 mg tablet 20 mg PO DAILY #10 tabs 04/01/25 semaglutide 1 mg/dose (4 mg/3 mL) subcutaneous pen injector (Ozempic) 1 mg (0.75 mL) subcut QWEEK #9 mL 04/01/25 insulin lispro 100 unit/mL subcutaneous pen (Humalog KwikPen (U-100) Insulin) 1 sliding scale dose subcut .4 times daily #15 mL 04/02/25 pen needle, diabetic 32 gauge x 1/6 (NovoFine Plus) #100 ea 04/02/25 Hospital Course Operations None Procedures - (Lumbar epidural injection) Summary of Care Provided Minutes Spent on Discharge: 31 Hospital Course: This 74-year-old white male was seen in the emergency room at [facility] with complaints of low back pain and right leg pain which had started approximately 10 days prior. He was seen in an outpatient setting and placed on a Medrol Dosepak but this provided little relief and the patient came to the emergency room for evaluation. MRI was obtained on the lumbar spine which showed lumbar disc ruptures at L3-4, L4-5, and moderate central canal stenosis at L3-4 and moderate central canal stenosis posterior to L4 and moderate central canal stenosis at L4-5.. Patient was admitted to [place] [id number] and placed on IV corticosteroids, IV narcotics, seen by PT and OT, and was consulted by pain management. Conversations were carried out with spinal surgery concerning the patient and they did not see the patient during the patient's hospitalization but recommended follow-up as an outpatient, they recommended that the patient have an epidural which was also recommended by pain management. Pain management performed an epidural on 04/01/2025 and the patient had good results from the procedure. On 04/01/2025, patient was seen and examined: On examination he appeared in good health and spirits. Vital signs as documented. Skin warm and dry and without overt rashes. Neck without JVD, neck was supple, trachea midline, thyroid was normal. Lungs clear bilaterally, normal air movement was noted. Heart exam notable for regular rhythm, normal sounds and absence of murmurs, rubs or gallops. Abdomen unremarkable and without evidence of organomegaly, masses, or abdominal aortic enlargement. Bowel sounds are present, abdomen is not distended. Extremities nonedematous, no cyanosis was noted, no clubbing was noted. Neuro: Cranial nerves II through XII are grossly intact, no focal motor deficits were noted, sensation to light touch and pinprick intact, motor exam 5/5 throughout. Psych: Patient is alert and oriented x3, he does not appear anxious or depressed, he does not appear agitated. Patient was stable for discharge home on 04/01/2025 Weight / BMI Weight Weight: 92.4 kg Body Mass Index (BMI) 30.0 ABG / Lab / Microbiology Data 04/01/25 04:27 04/01/25 04:27 Laboratory: Laboratory Results - last 24 hr 03/31/25 23:38: POC Glucose 316 H 04/01/25 04:27: WBC 9.4, RBC 4.21 L, Hgb 13.0, Hct 35.5 L, MCV 84.3, MCH 30.9, M CHC 36.6 H D, RDW Std Deviation 36.4, RDW Coeff of Julio 11.9, Plt Count 245, MPV 9.8, Immature Gran % (Auto) 0.400, Neut % (Auto) 84.9 H, Lymph % (Auto) 10.7 L, [place] % (Auto) 3.9, Eos % (Auto) 0.0, Baso % (Auto) 0.1, Absolute Neuts (auto) 7.9 H, Absolute Lymphs (auto) 1.00, Nucleated RBC % 0, Sodium 130 L, Potassium 4.7, Chloride 96 L, Carbon Dioxide 21.5, Anion Gap 13, BUN 43 H, Creatinine 1.27 H, Estim Creat Clear Calc 57.30, Est GFR (MDRD) Non-Af 59 L, BUN/Creatinine Ratio 33.9 H, Glucose 275 H, Calcium 8.8 04/01/25 06:23: POC Glucose 257 H 04/01/25 10:59: POC Glucose 199 H 04/01/25 16:15: POC Glucose 232 H D/C Instructions Weight Bearing Status: Full weight bearing DC O2, CPAP, BIPAP Needs Home O2 Discharge instructions: No Meaningful Use Info Meaningful Use Meaningful Use Diagnoses (Choose all that apply): None applicable Discharge Plan Admission Admit Date/Time: 03/31/25 10:57 Primary Reason for Your Visit: Ruptured lumbar disc, uncontrolled pain from sciatica Attending Provider: Handy Ho Primary Care Provider: Nimisha Reveles Consulting Providers: Ellen Hinds Discharge Orders/Prescriptions Prescriptions: New gabapentin 400 mg Capsule 400 mg PO TIDCM Qty: 90 0RF oxycodone 5 mg Tablet 5 - 10 mg PO Q4H PRN PRN (Reason: Pain Score 1-10) 7 Days Qty: 42 0RF prednisone 20 mg tablet 20 mg PO DAILY Qty: 10 0RF Continued (DME) blood sugar diagnostic [Relion Confirm-Micro] strip See Dose Instructions .ROUTE .MEDSUPPLY Qty: 20 Rx Instructions: As directed lovastatin 10 mg tablet 10 mg PO .QOD zinc sulfate 50 mg zinc (220 mg) capsule 50 mg PO QDAY aspirin [Adult Low Dose Aspirin] 81 mg tablet,delayed release (DR/EC) 81 mg PO QDAY acetaminophen [Tylenol Arthritis Pain] 650 mg tablet extended release 650 mg PO Q12H cholecalciferol (vitamin D3) 50 mcg (2,000 unit) capsule 50 mcg PO QDAY multivitamin Tablet 1 tab PO QAM Zyrtec 10 mg capsule 10 mg PO QDAY PRN (Reason: allergy symptoms) (DME) OneTouch Verio test strips Strip See Rx Instructions .Route Qty: 100 5RF Rx Instructions: TID enalapril maleate 5 mg tablet 5 mg PO BID Qty: 90 1RF (DME) blood-glucose meter [OneTouch Verio Reflect Meter] Mis See Rx Instructions .Route Qty: 1 0RF Rx Instructions: to be used 4x/day with test strip metformin 500 mg tablet extended release 24 hr 1,000 mg PO BID Qty: 360 1RF glipizide 10 mg tablet 10 mg PO BID Qty: 180 1RF tadalafil [Cialis] 5 mg tablet 5 mg PO QDAY Qty: 90 0RF hydrochlorothiazide 25 mg tablet 25 mg PO QAM Qty: 90 0RF Ozempic 1 mg/dose (4 mg/3 mL) pen injector 1 mg subcut QWEEK Qty: 9 1RF No Action insulin lispro [Humalog KwikPen Insulin] 100 unit/mL insulin pen 1 sliding scale dose subcut .4 times daily Qty: 15 0RF Rx Instructions: 160-200 4 units 201-240 8 units Over 240 12 units (DME) NovoFine Plus 32 gauge x 1/6 needle See Rx Instructions .Route Qty: 100 0RF Rx Instructions: qid Referrals / Follow Up: Ellen Hinds MD [Med Staff - Active Staff, Pain Management] - See Referral Note Referral Note: In 3 months Nimisha Reveles MD [Primary Care Provider, Internal Medicine] - Within 1 Month Junior Sullivan MD [Med Staff - Active Staff, Orthopedics] - See Referral Note Referral Note: Call the office to schedule appointment in 2 weeks, tell them you were hospitalized for ruptured disc and Dr. Sullivan requested you come in 2 weeks to the office Disposition Disposition (needs filled in before D/C Order can be placed): Home, Self Care Charges/Coding Visit Charges Inpatient E&M: 68253 Disch Hosp >30min
== END 2025-04-01 18:04 | disposition home or self-care (01) ==
LOC: ED 10:59 → MS3 04-01 09:21
PROVIDERS: Anesthesiology Pain Medicine; Admitting Provider Internal Medicine; Emergency Provider Emergency Medicine; PCP Internal Medicine; Visit Provider Internal Medicine
PROC: 3E0S3BZ Introduction of Anesthetic Agent into Epidural Space, Percutaneous Approach (ICD-10-PCS; CPT 62322; principal; 2025-04-01 14:25)
DX: M51.16 Intervertebral disc disorders with radiculopathy, lumbar region (principal); E11.9 Type 2 diabetes mellitus without complications; I10 Essential (primary) hypertension; E78.5 Hyperlipidemia, unspecified; M48.061 Spinal stenosis, lumbar region without neurogenic claudication; Z87.891 Personal history of nicotine dependence; Z79.85 Long-term (current) use of injectable non-insulin antidiabetic drugs; Z79.82 Long term (current) use of aspirin; Z79.899 Other long term (current) drug therapy; Z79.84 Long term (current) use of oral hypoglycemic drugs; R79.89 Other specified abnormal findings of blood chemistry
CPT/HCPCS: 62323; 36415; 72020; 72148; 76000; 80048; 82962; 85025; 93005; 96372; 96374; 96375; 96376; 97161; 97802; 99221; 99285; A4216; G0378; J2405